=== PATIENT | male | born 1995 | race Caucasian/White ===

== ENCOUNTER 2017-05-04 19:54 | Emergency (ER) | payer SELFPAY ==
[~2017-05-04] VITALS: Ht 167.6 cm; Wt 63.1 kg
[2017-05-04 19:56] VITALS: BP 125/79
== END 2017-05-04 21:31 | disposition home or self-care (01) ==
LOC: ED 21:00
DX: S16.1XXA Strain of muscle, fascia and tendon at neck level, initial encounter (principal); S09.90XA Unspecified injury of head, initial encounter; V43.62XA Car passenger injured in collision with other type car in traffic accident, initial encounter; Y93.89 Activity, other specified; Y92.410 Unspecified street and highway as the place of occurrence of the external cause; Y99.9 Unspecified external cause status
CPT/HCPCS: 70450; 99284